=== PATIENT | male | born 1985 | race Caucasian/White ===

== ENCOUNTER 2017-11-24 13:04 | Emergency (ER) | payer OTHER ==
[~2017-11-24] VITALS: Ht 157.5 cm; Wt 184.6 kg
[~2017-11-24 13:04] MED LIST: DEPO-TESTO200 MG/1 M; FLEXERIL PO; LISINOPRIL2.5 MG; NOHOMEMEDICATIONS; NORCO 7.5-3251 EACH PO; PERCOCET 5-3251 EACH PO; PERCOCET 7.5-51 EACH PO; SUPRENZA ODT15 MG
[2017-11-24] MEDS ORDERED: ULTRAM 50MG TAB50 MG PO (13:12)
[2017-11-24] MEDS ORDERED: ANASTROZOLE1 MG PO (13:12)
[2017-11-24] MEDS ORDERED: VICTOZA0.6 MG/0.1 SUBQ (13:13)
[2017-11-24] MEDS ORDERED: CYMBALTA30 MG PO (13:14)
[2017-11-24 13:34] LABS: ABSOLUTE BASOPHILS 0.1 thou/uL (0.0-0.2); ABSOLUTE EOSINOPHILS 0.1 thou/uL (0.0-0.7); ABSOLUTE LYMPHOCYTES 1.9 thou/uL (0.8-5.3); ABSOLUTE MONOCYTES 0.5 thou/uL (0.0-1.2); ABSOLUTE NEUTROPHILS 4.1 thou/uL (1.6-8.1); BASOPHILS 1.1 %; EOSINOPHILS 1.4 %; HEMATOCRIT 47.5 % (42.0-52.0); HEMOGLOBIN 15.8 gm/dL (14.0-18.0); LYMPHOCYTES 28.2 %; MCH 27.7 pg (26.0-34.0); MCHC 33.2 g/dL (28.0-37.0); MCV 83.3 fL (80.0-100.0); MPV 6.8 fl. (7.2-11.1); NUCLEATED RBCS 0 /100WBC; PLATELET COUNT* 291 thou/uL (150-400); POLYS 61.3 %; RDW-CV 14.1 % (10.5-14.5); WBC 6.6 thou/uL (4.0-11.0)
[2017-11-24 13:42] LABS: ANION GAP 8 mmol/L (7-16); BUN 14 mg/dL (7-18); CALCIUM 9.1 mg/dL (8.5-10.1); CHLORIDE 105 mmol/L (98-107); CO2 27 mmol/L (21-32); CREATININE 1.1 mg/dL (0.6-1.3); GLUCOSE 89 mg/dL (70-99); SODIUM 140 mmol/L (136-145)
[2017-11-24 13:43] LABS: APTT 30.7 Seconds (25.0-31.3); INR 1.1; PROTIME 10.4 Seconds (9.20-11.50)
[2017-11-24 13:51] LABS: LIPASE 190 U/L (73-393); SGOT 26 U/L (15-37)
[2017-11-24 13:52] LABS: ALKALINE PHOSPHATASE 68 U/L (46-116); MAGNESIUM 2.2 mg/dL (1.8-2.4); SGPT 46 U/L (30-65); TOTAL BILIRUBIN 0.5 mg/dL (<0.1-1.0); TOTAL PROTEIN 8.3 g/dL (6.4-8.2); TROPONIN-I LEVEL <0.06 ng/mL (<0.06)
[2017-11-24 13:58] LABS: NT-PRO BRAIN NAT PEPTIDE 3 pg/mL (<300)
[2017-11-24 14:27] LABS: CK-MB MASS 0.9 ng/mL (<0.5-3.6)
--- NOTE | 2017-11-25 15:22 | EKG ---
[place] [address] ELECTROCARDIOGRAM REPORT Name: RYAN DOZIER Room: [facility]#: [id number] Admission: 11/24/17 Attend Phys: Discharge: 11/24/17 Date of : 89 Report #: [id number] THIS REPORT FOR: //name// [facility] ED Test Date: 2017-11-24 Test Time: 13:11:01 Pat Name: RYAN DOZIER Department: Room: Gender: M [employer] Location Manager: Franko HOBSON : 1985 Requested By: Jose Jacobson Order Number: [id number] MD: Nathan Babb Measurements Intervals [place] Rate: 102 P: 40 [place]: 145 QRS: 28 QRSD: 94 T: 30 QT: 302 QTc: 394 Interpretive Statements Sinus tachycardia Probable left atrial enlargement Compared to ECG 01/23/2013 23:56:59 Heart rate has increased Electronically Signed On 11-25-2017 15:21:57 LOADER OPERATOR/GROUND LEADER by Nathan Babb [email or web address] <ELECTRONICALLY SIGNED> By: Nathan Babb MD, [facility] 11/25/17 1521 1311 10 Nathan Babb MD, FACC /EPI
== END 2017-11-24 14:30 | disposition home or self-care (01) ==
LOC: M.ERS 13:04
PROVIDERS: Family Medicine
DX: R07.89 Other chest pain (principal); I10 Essential (primary) hypertension